=== PATIENT | male | born 2000 | race Caucasian/White ===

== ENCOUNTER → 2020-08-15 15:17 | Outpatient (CLI) | payer MEDICARE, SELFPAY ==
[2020-08-15 14:57] VITALS: BMI 38.0
[2020-08-15 16:34] LABS: Absolute Lymphocyte Count 1.76 X10^3/uL (0.83-4.51); Absolute Neutrophil Count 2.6 X10^3/uL (2.0-7.7); Basophil# 0.01 X10^3/uL; Basophil% 0.2 % (0-1); Hematocrit 43.9 % (40-54); Hemoglobin 14.1 g/dL (13.0-16.5); Lymphocyte # 1.76 X10^3/ul (4.0); Mean Corp Hgb Conc 32.1 g/dL (32-36); Mean Corpuscular Hgb 26.2 pg (27.0-32.0); Mean Corpuscular Volume 81.4 fL (80-94); Mean Platelet Vol. 9.9 fl (6.2-12.0); Monocyte# 0.41 X10^3/uL; Monocyte% 8.4 % (0-10); NRBC Flagged by Analyzer 0 % (0-5); Neutrophil % 53.2 % (47-70); Platelet Count 214 K/mm3 (150-450); RBC Distribution Width CV 13.6 % (11.6-14.6); RBC Distribution Width SD 40.6 fl (35.1-43.9); Red Blood Count 5.39 M/mm3 (4.6-6.2); White Blood Count 4.9 K/mm3 (4.4-11.0)
[2020-08-15 16:56] LABS: ALB/GLOB Ratio 0.8 RATIO (0.9-2.4); AST(SGOT) 55 U/L (15-37); Alanine Aminotransfer ALT/SGPT 85 U/L (16-61); Albumin, Serum 3.4 g/dL (3.2-5.0); Alkaline Phosphatase 99 U/L (45-117); Anion Gap 5 (5-15); BUN 6 mg/dL (7-18); BUN/Creat Ratio 7.5 RATIO (10-20); Calcium,Total 8.8 mg/dL (8.5-10.1); Chloride 106 mmol/L (98-107); Cholesterol 130 mg/dL (200); EST Glomerular Filtration Rate 129 mL/min (>60); Est Glom Filt Rate - Afr Amer 156 mL/min (>60); Globulin 4.3 g/dL (2.2-4.2); Glucose 100 mg/dL (74-106); High Density Lipoprotein 39 mg/dL; Protein, Total 7.7 g/dL (6.4-8.2); Sodium Level 139 mmol/L (136-145); Thyroid Stim Hormone (TSH) 2.47 uIU/mL (0.358-3.74); Triglycerides 197 mg/dL; Very Low Density Lipoprotein 39 mg/dL (5-40)
== END ==
PROVIDERS: PCP Internal Medicine; Referring Provider Internal Medicine; Visit Provider Internal Medicine
DX: K21.9 Gastro-esophageal reflux disease without esophagitis (principal); E66.9 Obesity, unspecified; E03.9 Hypothyroidism, unspecified
CPT/HCPCS: 36415; 80053; 80061; 84443; 85025

== ENCOUNTER → 2020-10-01 11:16 | Outpatient (CLI) | payer MEDICARE, SELFPAY ==
[2020-08-15 14:57] VITALS: BMI 38.0
[2020-10-01 11:58] LABS: Platelet Count 197 K/mm3 (150-450)
[2020-10-01 12:02] LABS: Valproic Acid (Depakene) Level 38 ug/mL (50-100)
[2020-10-01 12:06] LABS: Hemoglobin A1c 5.8 % (3.8-5.6)
[2020-10-01 13:38] LABS: AST(SGOT) 54 U/L (15-37); Alanine Aminotransfer ALT/SGPT 86 U/L (16-61); Cholesterol 131 mg/dL (200); High Density Lipoprotein 38 mg/dL; Prolactin 90.6 ng/mL; Triglycerides 216 mg/dL; Very Low Density Lipoprotein 43 mg/dL (5-40)
== END ==
PROVIDERS: PCP Internal Medicine; Referring Provider Psychiatry & Neurology Psychiatry; Visit Provider Psychiatry & Neurology Psychiatry
DX: Z79.899 Other long term (current) drug therapy (principal)
CPT/HCPCS: 36415; 80061; 80164; 82140; 83036; 84146; 84450; 84460; 85049

== ENCOUNTER 2020-12-14 23:23 | Emergency (ER) | payer MEDICARE, SELFPAY ==
--- NOTE | 2020-12-14 00:10 | RAD_ITS ---
STUDY: X-RAY - LUMBAR SPINE REASON FOR EXAM: Male, 20 years old. fall TECHNIQUE: 3 view(s) of the lumbar spine were obtained. COMPARISON: None FINDINGS: Normal lumbar lordosis. There is no substantial scoliosis. There is a normal alignment of the vertebrae. Normal vertebral bodies and endplates. Normal disc space heights. The soft tissue structures are unremarkable. RAD/Lumbar Spine 2 or 3 Views IMPRESSION: Normal x-ray examination of the lumbar spine. Electronically Signed: Rosa Brantley MD at 0:46 EDT Tel , Service support ,
[2020-12-14 23:24] VITALS: BP 144/84; PULSE 87; RESP 16; TEMP 36; O2SAT 99; BMI 38.9
--- NOTE | 2020-12-14 23:45 | EDS_ITS ---
HPI History of Present Illness Chief Complaint: Back Narrative Narrative: 20-year-old male presenting with left sided back pain and left leg pain. He states this started earlier today. He states that he has had diarrhea and felt that he might be dehydrated. He states he feels like this caused him to fall. He denies hitting his head. He complains of a cramping in his left calf. He also complains of sore throat. He has had the Covid vaccine. Denies fever. Denies cough. Denies abdominal pain. Denies nausea or vomiting. Denies other complaints. [facility] [place] Medical History Anxiety Autism Depression Home Medications cyclobenzaprine 10 mg PO TID PRN #20 tablet 12/15/20 [Rx Last Taken Unknown] Allergy/AdvReac Type Severity Reaction Status Date / Time No Known Allergies Allergy Verified 12/14/20 23:52 Social History Smoking Status: Current some day smoker tobacco type: e-cigarettes ROS ROS ED Constitutional Constitutional ED: Denies fever(s) Eyes Eyes: Denies change in vision ENT ENT ED: Reports rhinorrhea and sore throat Cardiovascular Cardiovascular: Denies chest pain or palpitations Respiratory/Chest Respiratory/Chest: Denies cough or dyspnea Gastrointestinal Gastrointestinal: Reports diarrhea; Denies abdominal pain, nausea or vomiting Genitourinary Genitourinary ED: Denies dysuria Musculoskeletal Musculoskeletal: Reports back pain Integumentary Denies rash Neurologic Neurologic: Denies headache(s) Psychiatric Psychiatric: Denies suicidal thoughts EXAM Physical Exam Const Vital Signs: 12/14/20 23:24 Temperature 96.8 F L Temperature Source Temporal Pulse Rate 87 Respiratory Rate 16 Blood Pressure 144/84 H Blood Pressure Mean 104 Pulse Ox 99 Oxygen Delivery Method Room Air Positive well nourished and well developed General Appearance ED: well developed HEENT Reports normocephalic, head/scalp atraumatic and moist mucous membranes HEENT Narrative: no pharyngeal erythema or exudate. Uvula midline Eyes PERRL and EOMs intact bilaterally Neck supple Neck Narrative: No meningismus General: Negative for tenderness Chest Wall inspection of chest normal Resp normal respiratory effort and clear to auscultation bilaterally Cardio regular rate and regular rhythm GI non-tender and non-distended Palpation: soft; Negative for guarding or rebound tenderness present no CVA tenderness Back/Spine General Back: other mild left lumbar paraspinal muscle tenderness Lumbar Spine / Lower Back: Negative for lumbar spinal tenderness Extremity normal to inspection Extremity Narrative: left calf tenderness. Normal distal pulses Neuro oriented x3 and no sensory deficits noted Sensorium / Orientation: alert Motor Exam: strength 5/5 throughout Psych mental status grossly normal Skin no rashes or lesions noted MDM MDM MDM Narrative Medical decision making narrative: Patient was given IV fluids. On ree valuation, he is feeling improved. Labs are unremarkable. Covid and rapid strep are negative. Lumbar x-rays read by myself and radiology show no acute process. Patient was given order for outpatient venous Doppler as this is not available at this time. Advised to return to ED for worsening complaints. Lab Data Attestation: I reviewed the patient's lab results. Labs: Laboratory Results - last 24 hr 12/14/20 12/14/20 12/15/20 23:50 23:50 00:41 WBC 6.1 RBC 5.14 Hgb 13.3 Hct 41.2 MCV 80.2 MCH 25.9 L MCHC 32.3 RDW Std Deviation 40.1 RDW Coeff of [place] 13.8 Plt Count 205 MPV 9.5 Immature Gran % (Auto) 0.300 Neut % (Auto) 55.5 Lymph % (Auto) 32.4 [place] % (Auto) 8.7 Eos % (Auto) 2.8 Baso % (Auto) 0.3 Absolute Neuts (auto) 3.4 Absolute Lymphs (auto) 1.97 Nucleated RBC % 0 Sodium 138 Potassium 3.9 Chloride 105 Carbon Dioxide 27.0 Anion Gap 6 BUN 7 Creatinine 0.77 Estim Creat Clear Calc 166.57 Est GFR (MDRD) Af Amer 164 Est GFR (MDRD) Non-Af 135 BUN/Creatinine Ratio 9.1 L Glucose 127 H Calcium 8.9 Urine Color Yellow Urine Clarity Clear Urine pH 7.0 Ur Specific [place] 1.015 Urine Protein Negative Urine Glucose (UA) Normal Urine Ketones Negative Urine Occult Blood Negative Urine Nitrite Negative Urine Bilirubin Negative Urine Urobilinogen Normal Ur Leukocyte Esterase Negative Urine RBC 0 SEEN Urine WBC 0 SEEN Ur Squamous Epith Cells 0 SEEN Urine Bacteria 0 SEEN Urine Mucus 0 SEEN Radiography Diagnostic Testing: Radiology Impression Lumbar Spine X-Ray 12/14/20 00:10 IMPRESSION: Normal x-ray examination of the lumbar spine. Electronically Signed: Rosa Brantley MD at 0:46 EDT Tel , Service support , Discharge Plan Triage Chief Complaint: Back ED Provider: Karlee Wise Dx/Rx/DC Orders Clinical Impression: Lumbar strain Prescriptions: New cyclobenzaprine [cyclobenzaprine] 10 MG tablet 10 mg PO TID PRN (Reason: Muscle Spasm) Qty: 20 RF: 0 Primary Care Provider: Baylee Goddard Referrals: Baylee Goddard MD [Primary Care Provider] - Disposition Disposition: Home, self care
[2020-12-14 23:57] LABS: Absolute Lymphocyte Count 1.97 X10^3/uL (0.83-4.51); Absolute Neutrophil Count 3.4 X10^3/uL (2.0-7.7); Basophil# 0.02 X10^3/uL; Basophil% 0.3 % (0-1); Eosinophil# 0.17 X10^3/uL; Eosinophils% 2.8 % (0-5); Hematocrit 41.2 % (40-54); Hemoglobin 13.3 g/dL (13.0-16.5); Lymphocyte # 1.97 X10^3/ul (0.83-4.51); Lymphocyte % 32.4 % (19-41); Mean Corp Hgb Conc 32.3 g/dL (32-36); Mean Corpuscular Hgb 25.9 pg (27.0-32.0); Mean Corpuscular Volume 80.2 fL (80-94); Mean Platelet Vol. 9.5 fl (6.2-12.0); Monocyte# 0.53 X10^3/uL; Monocyte% 8.7 % (0-10); NRBC Flagged by Analyzer 0 % (0-5); Neutrophil # 3.37 X10^3/uL (2.7-7.7); Neutrophil % 55.5 % (47-70); Platelet Count 205 K/mm3 (150-450); RBC Distribution Width CV 13.8 % (11.6-14.6); RBC Distribution Width SD 40.1 fl (35.1-43.9); Red Blood Count 5.14 M/mm3 (4.6-6.2); White Blood Count 6.1 K/mm3 (4.4-11.0)
[2020-12-14] MEDS: Ondansetron 4 MG/2 ML Vial IV (23:58)
[2020-12-14] MEDS: 0.9% Normal Saline 1,000 ML 1000 ML IV (23:58)
[2020-12-15 00:17] LABS: Anion Gap 6 (5-15); BUN 7 mg/dL (7-18); BUN/Creat Ratio 9.1 RATIO (10-20); Calcium,Total 8.9 mg/dL (8.5-10.1); Chloride 105 mmol/L (98-107); Creatinine, Serum 0.77 mg/dL (0.70-1.30); EST Glomerular Filtration Rate 135 mL/min (>60); Est Glom Filt Rate - Afr Amer 164 mL/min (>60); Estimated Creatinine Clearance 166.57 ml/min; Glucose 127 mg/dL (74-106); Potassium 3.9 mmol/L (3.5-5.1); Sodium Level 138 mmol/L (136-145)
[2020-12-15 00:45] LABS: Bacteria 0 SEEN /hpf (None Seen); Mucous, Urine 0 SEEN /hpf (<or=2+); Red Blood Cells-Urine 0 SEEN /hpf (0-5); Squamous Epithelial Cells - UA 0 SEEN /hpf (0-5); White Blood Cells 0 SEEN /hpf (0-5)
[2020-12-15 00:48] LABS: Color, Urine Yellow (Yellow); Glucose, Dipstick Normal (Normal); Ketone-Dipstick Negative (Negative); Leukocyte Esterase-Dipstick Negative /ul (Negative); Nitrite-Dipstick Negative (Negative); Occult Blood-Urine Negative /ul (Negative); Protein-Dipstick Negative (Negative); Specific Gravity, Urine 1.015 (1.002-1.030); Urine Bilirubin Dipstick Negative (Negative); Urine Clarity Clear (Clear); Urine Urobilinogen Normal (Normal)
[2020-12-15 01:39] VITALS: BP 137/72; PULSE 81; RESP 15; O2SAT 98
--- NOTE | 2020-12-15 02:17 | ED.RN ---
Unable to find pts shirt at discharge. This RN asked three RNs, PRIMER PRESS OPERATOR and Radiology if they knew where his shirt was, no one knew. I checked all around room and underneath the bed. The linen bag was emptied prior to PTs arrival and continues to be emptied. PT blanket and gown were checked, still no shirt. oenologist involved. This RN verified pts phone number and sent pt home. I told PT we would continue to look for the shirt. Phone number verified. PT was happy to go home to sleep.
== END 2020-12-15 02:48 | disposition home or self-care (01) ==
PROVIDERS: Emergency Provider Emergency Medicine; PCP Internal Medicine
DX: S39.012A Strain of muscle, fascia and tendon of lower back, initial encounter (principal); J02.9 Acute pharyngitis, unspecified; F41.9 Anxiety disorder, unspecified; F32.9 Major depressive disorder, single episode, unspecified; F17.290 Nicotine dependence, other tobacco product, uncomplicated; Z79.899 Other long term (current) drug therapy; W18.30XA Fall on same level, unspecified, initial encounter; Y93.89 Activity, other specified; Y92.89 Other specified places as the place of occurrence of the external cause; Y99.8 Other external cause status
CPT/HCPCS: 72100; 80048; 81001; 85025; 87426; 87880; 96361; 96374; 99283; J7030; A4216; J2405

== ENCOUNTER → 2020-12-20 13:13 | Outpatient (CLI) | payer MEDICARE, SELFPAY ==
[2020-12-14 23:24] VITALS: BMI 38.9
--- NOTE | 2020-12-20 13:25 | VDLE_ITS ---
Reason For Study: Pain Procedure LEFT This is a venous duplex using B-mode, color GSV is normal. flow and spectral Doppler. CFV is compressible, spontaneous, phasic, Exam performed in department. competent, and demonstrates normal A preliminary report was called and/or faxed augmentation. to PCP: Rupesh. FV is compressible, spontaneous, phasic, competent and demonstrates normal augmentation. POP V is compressible, spontaneous, phasic, competent and demonstrates normal augmentation. T/P Trunk is compressible. PTV is compressible. LT PerV is compressible. VL/Venous Duplex US, Unilateral Interpretation Summary There is no evidence of left lower extremity deep vein thrombosis. Left great s aphenous vein appears patent and compressible segmentally. Ordering Physician: Karlee Wise Referring Physician: Baylee Goddard Performed By: Jessica Vogt RVT and Student
== END ==
PROVIDERS: PCP Internal Medicine; Visit Provider Emergency Medicine
DX: M79.605 Pain in left leg (principal)
CPT/HCPCS: 93971

== ENCOUNTER 2021-01-17 07:08 | Emergency (ER) | payer MEDICARE, SELFPAY ==
[2021-01-17 07:09] VITALS: BP 132/80; PULSE 92; RESP 18; TEMP 36.7; O2SAT 97; BMI 39.1
[2021-01-17 07:12] VITALS: O2SAT 97
--- NOTE | 2021-01-17 07:19 | EKG12_ITS ---
Test Reason : SOB Blood Pressure : / mmHG Vent. Rate : 095 BPM Atrial Rate : 095 BPM P-R Int : 140 ms QRS Dur : 080 ms QT Int : 350 ms P-R-T Axes : 006 024 012 degrees QTc Int : 439 ms Normal sinus rhythm Possible Inferior infarct , age undetermined Abnormal ECG Confirmed by HASMUKH URBAN, CATA ([id number]), industrial editor PHUONG ALVAREZ ([id number]) on 01/20/2021 9:50:28 AM Referred By: JOSEPH Confirmed By:ANTONELLA NOE MD
--- NOTE | 2021-01-17 07:19 | RAD_ITS ---
STUDY: X-RAY CHEST REASON FOR EXAM: Male, 20 years old. chest pain TECHNIQUE: Single frontal view of the chest was obtained. COMPARISON: None. FINDINGS: The lungs are clear and expanded. There is no demonstrated pleural abnormality. Normal size heart. Normal mediastinum and humphrey. Normal visualized pulmonary arteries. Normal visualized aortic arch and descending thoracic aorta. Normal visualized thoracic spine. Normal visualized ribs, clavicles, and shoulders. There is no demonstrated abnormality of the visualized soft tissue structures of the upper abdomen. RAD/Chest 1 View (Portable) IMPRESSION: Normal x-ray examination of the chest. Electronically Signed: Otis Shaver MD at 8:23 EDT Tel , Service support ,
--- NOTE | 2021-01-17 07:19 | EDS_ITS ---
HPI History of Present Illness Chief Complaint: Shortness of Breath Narrative Narrative: 20-year-old male with history of autism, anxiety, depression presenting with intermittent sharp chest pain which is retrosternal for about 3 weeks. and nonradiating Patient has not had a fever, chills, myalgias, loss of taste or smell patient said he was coughing yesterday after drinking 2 L of soda. Patient does not have any dyspnea. Patient has no cardiac history. No history of DVT/PE and no risk factors. [facility] Medical History Anxiety Autism Depression GERD (gastroesophageal reflux disease) Hypothyroidism Schizoaffective disorder Seizures Home Medications benztropine 2 mg tablet 2 mg PO DAILY 08/15/20 [History Last Taken Unknown] divalproex 250 mg tablet,delayed release 250 mg PO QHS tab 08/15/20 [History Last Taken Unknown] divalproex 500 mg tablet,delayed release 500 mg PO BID 08/15/20 [History Last Taken Unknown] doxepin 75 mg capsule 75 mg PO QHS 08/15/20 [History Last Taken Unknown] hydrocortisone 2.5 % topical ointment 1 applic TOPICAL BID PRN #454 g 08/15/20 [Rx Last Taken Unknown] levocetirizine 5 mg tablet 5 mg PO QPM #90 tab 08/15/20 [Rx Last Taken Unknown] paliperidone 9 mg tablet,extended release 24 hr 9 mg PO DAILY 08/15/20 [History Last Taken Unknown] sertraline 100 mg tablet 100 mg PO DAILY 08/15/20 [History Last Taken Unknown] topiramate 25 mg tablet 25 mg PO DAILY 08/15/20 [History Last Taken Unknown] ergocalciferol (vitamin D2) 1,250 mcg (50,000 unit) capsule 1,250 mcg PO QWEEK #10 cap 09/04/20 [Rx Last Taken Unknown] folic acid 1 mg tablet 1 mg PO DAILY #90 tab 09/04/20 [Rx Last Taken Unknown] cyclobenzaprine 10 mg PO TID PRN #20 tablet 12/15/20 [Rx Last Taken Unknown] levothyroxine 25 mcg capsule 25 mcg PO DAILY #90 cap 01/16/21 [Rx Last Taken Unknown] omeprazole 40 mg capsule,delayed release 40 mg PO DAILY #90 cap 01/16/21 [Rx Last Taken Unknown] Allergy/AdvReac Type Severity Reaction Status Date / Time No Known Allergies Allergy Unverified 01/17/21 07:09 Family History Mother Diabetes Other Hypertension Social History Smoking Status: Former smoker alcohol intake: never substance use type: does not use ROS ROS ED Constitutional Constitutional ED: Denies chills, fever(s) or sweats Eyes Eyes: Denies blurry vision or diplopia ENT ENT ED: Denies rhinorrhea or sore throat Cardiovascular Cardiovascular: Reports chest pain; Denies palpitations or racing heartbeat Respiratory/Chest Respiratory/Chest: Reports cough; Denies dyspnea, dyspnea on exertion or sputum Gastrointestinal Gastrointestinal: Denies abdominal pain, nausea or vomiting Genitourinary Genitourinary ED: Denies dysuria or hematuria Musculoskeletal Musculoskeletal: Denies arthralgias or myalgias Integumentary Denies abscess or rash Neurologic Neurologic: Denies headache(s) or paresthesias Psychiatric Psychiatric: Reports depression; Denies anxiety, suicidal ideation or suicidal thoughts EXAM Physical Exam Const Vital Signs: 01/17/21 07:09 01/17/21 07:12 01/17/21 07:23 Temperature 98.0 F Temperature Source Oral Pulse Rate 92 Respiratory Rate 18 Respiratory Effort Normal Non-Labored Respiratory Depth Normal Respiratory Pattern Normal Blood Pressure 132/80 H Blood Pressure Mean 97 Pulse Ox 97 98 Oxygen Delivery Method Room Air Room Air Room Air 01/17/21 08:16 Temperature Temperature Source Pulse Rate 75 Respiratory Rate 16 Respiratory Effort Respiratory Depth Respiratory Pattern Blood Pressure 119/65 Blood Pressure Mean 83 Pulse Ox 98 Oxygen Delivery Method Room Air Positive obese General Appearance ED: NAD Nutritional Appearance: obese HEENT Reports moist mucous membranes normocephalic and atraumatic Eyes PERRL and EOMs intact bilaterally Resp normal respiratory effort Effort and Inspection: respiratory distress Cardio regular rate and regular rhythm GI normal to inspection, nondistended, normoactive bowel sounds Extremity normal to inspection General Extremety ED: Negative for edema or tenderness General Extremity: Negative for edema Neuro oriented x3 Sensorium / Orientation: awake and alert Psych mental status grossly normal Skin no rashes or lesions noted and no wounds Heart Score History: Slightly/Non-Suspicious ECG: Normal Age: </= 45 years Risk Factors: No Risk Factors Troponin: </= Normal Limit Score: 0 MDM MDM MDM Narrative Medical decision making narrative: Patient presenting with intermittent sharp chest pain. This has been going on for about 3 weeks. Patient is PERC negative. Patient had EKG performed on arrival which shows a sinus rhythm at 95 bpm without signs of ST elevation or depression or dysrhythmia on my interpretation. Lab work is within normal limits. Troponin is negative. Patient is young and has no cardiac history and I do not believe he needs a delta troponin. Chest x-ray on my interpretation shows no acute cardiopulmonary process and the radiologist does agree. Patient will be discharged home in stable condition. Impression: Mitch #1 chest pain Lab Data Labs: Laboratory Results - last 24 hr 01/17/21 01/17/21 01/17/21 07:17 07:17 07:17 WBC 6.0 RBC 5.32 Hgb 13.5 Hct 42.5 MCV 79.9 L MCH 25.4 L MCHC 31.8 L RDW Std Deviation 40.2 RDW Coeff of [place] 13.9 Plt Count 200 MPV 9.4 Immature Gran % (Auto) 0.500 Neut % (Auto) 55.4 Lymph % (Auto) 32.2 [place] % (Auto) 9.4 Eos % (Auto) 2.0 Baso % (Auto) 0.5 Absolute Neuts (auto) 3.3 Absolute Lymphs (auto) 1.92 Nucleated RBC % 0 Sodium 138 Potassium 3.5 Chloride 103 Carbon Dioxide 26.0 Anion Gap 9 BUN 5 L Creatinine 0.90 Estim Creat Clear Calc 142.51 Est GFR (MDRD) Af Amer 137 Est GFR (MDRD) Non-Af 113 BUN/Creatinine Ratio 5.6 L Glucose 116 H Calcium 8.7 Troponin I High Sens 3.7 Valproic Acid 60 Radiography Diagnostic Testing: Radiology Impression Chest X-Ray 01/17/21 07:19 IMPRESSION: Normal x-ray examination of the chest. Electronically Signed: Otis Shaver MD at 8:23 EDT Tel , Service support , Discharge Plan Triage Chief Complaint: Shortness of Breath ED Provider: Ravi Martinez Dx/Rx/DC Orders Instructions: ED Chest Pain, Noncardiac Prescriptions: No Action benztropine 2 mg tablet 2 mg PO DAILY RF: 0 divalproex [Depakote] 250 mg tablet,delayed release (DR/EC) 250 mg PO QHS RF: 0 divalproex [Depakote] 500 mg tablet,delayed release (DR/EC) 500 mg PO BID RF: 0 doxepin 75 mg capsule 75 mg PO QHS RF: 0 paliperidone [Invega] 9 mg tablet extended release 24hr 9 mg PO DAILY RF: 0 sertraline [Zoloft] 100 mg tablet 100 mg PO DAILY RF: 0 topiramate 25 mg tablet 25 mg PO DAILY RF: 0 hydrocortisone 2.5 % ointment 1 applic TOPICAL BID PRN (Reason: rash) Qty: 454 RF: 3 levocetirizine [Xyzal] 5 mg tablet 5 mg PO QPM Qty: 90 RF: 2 cyclobenzaprine [cyclobenzaprine] 10 MG tablet 10 mg PO TID PRN (Reason: Muscle Spasm) Qty: 20 RF: 0 ergocalciferol (vitamin D2) 1,250 mcg (50,000 unit) capsule 1,250 mcg PO QWEEK Qty: 10 RF: 2 folic acid 1 mg tablet 1 mg PO DAILY Qty: 90 RF: 0 levothyroxine 25 mcg capsule 25 mcg PO DAILY Qty: 90 RF: 1 omeprazole 40 mg capsule,delayed release(DR/EC) 40 mg PO DAILY Qty: 90 RF: 1 Primary Care Provider: Baylee Goddard Referrals: Baylee Goddard MD [Primary Care Provider] - Disposition Disposition: Home, Self Care
[2021-01-17 07:23] VITALS: O2SAT 98
[2021-01-17] MEDS: Aspirin 81 MG TAB.CHEW 324 MG PO (07:27)
[2021-01-17 07:37] LABS: Absolute Lymphocyte Count 1.92 X10^3/uL (0.83-4.51); Absolute Neutrophil Count 3.3 X10^3/uL (2.0-7.7); Basophil# 0.03 X10^3/uL; Basophil% 0.5 % (0-1); Eosinophil# 0.12 X10^3/uL; Hematocrit 42.5 % (40-54); Hemoglobin 13.5 g/dL (13.0-16.5); Lymphocyte # 1.92 X10^3/ul (0.83-4.51); Lymphocyte % 32.2 % (19-41); Mean Corp Hgb Conc 31.8 g/dL (32-36); Mean Corpuscular Hgb 25.4 pg (27.0-32.0); Mean Corpuscular Volume 79.9 fL (80-94); Mean Platelet Vol. 9.4 fl (6.2-12.0); Monocyte# 0.56 X10^3/uL; Monocyte% 9.4 % (0-10); NRBC Flagged by Analyzer 0 % (0-5); Neutrophil # 3.31 X10^3/uL (2.7-7.7); Neutrophil % 55.4 % (47-70); Platelet Count 200 K/mm3 (150-450); RBC Distribution Width CV 13.9 % (11.6-14.6); RBC Distribution Width SD 40.2 fl (35.1-43.9); Red Blood Count 5.32 M/mm3 (4.6-6.2)
[2021-01-17 07:49] LABS: Anion Gap 9 (5-15); BUN 5 mg/dL (7-18); BUN/Creat Ratio 5.6 RATIO (10-20); Calcium,Total 8.7 mg/dL (8.5-10.1); Chloride 103 mmol/L (98-107); EST Glomerular Filtration Rate 113 mL/min (>60); Est Glom Filt Rate - Afr Amer 137 mL/min (>60); Estimated Creatinine Clearance 142.51 ml/min; Glucose 116 mg/dL (74-106); Potassium 3.5 mmol/L (3.5-5.1); Sodium Level 138 mmol/L (136-145); Troponin-I HS 3.7 pg/mL (3.0-78.5)
[2021-01-17 08:11] LABS: Valproic Acid (Depakene) Level 60 ug/mL (50-100)
[2021-01-17 08:16] VITALS: BP 119/65; PULSE 75; RESP 16; O2SAT 98
[2021-01-17 08:35] VITALS: BP 121/68; PULSE 78; RESP 16; O2SAT 98
== END 2021-01-17 08:36 | disposition home or self-care (01) ==
PROVIDERS: Emergency Provider Student in an Organized Health Care Education/Training Program; PCP Internal Medicine
DX: R07.89 Other chest pain (principal); F41.9 Anxiety disorder, unspecified; F32.9 Major depressive disorder, single episode, unspecified; K21.9 Gastro-esophageal reflux disease without esophagitis; E03.9 Hypothyroidism, unspecified; F25.9 Schizoaffective disorder, unspecified; E66.9 Obesity, unspecified; Z79.899 Other long term (current) drug therapy; Z87.891 Personal history of nicotine dependence
CPT/HCPCS: 71045; 80048; 80164; 84484; 85025; 93005; 99285; A4216

== ENCOUNTER 2021-02-03 13:19 | Emergency (ER) | payer MEDICARE, SELFPAY ==
[2021-02-03 13:20] VITALS: BP 130/74; PULSE 98; RESP 16; TEMP 37; O2SAT 98; BMI 38.2
[2021-02-03 13:30] VITALS: O2SAT 98
--- NOTE | 2021-02-03 13:55 | EKG12_ITS ---
Test Reason : SOB Blood Pressure : / mmHG Vent. Rate : 085 BPM Atrial Rate : 085 BPM P-R Int : 140 ms QRS Dur : 088 ms QT Int : 364 ms P-R-T Axes : -02 027 030 degrees QTc Int : 433 ms Normal sinus rhythm Normal ECG Confirmed by DHEERAJ URBAN, MICHELLE ([id number]), greeting card editor PHUONG ALVAREZ ([id number]) on 02/06/2021 12:46:00 PM Referred By: DT Confirmed By:MICHELLE ESQUEDA MD
[2021-02-03] MEDS: Ipratropium/Albuterol Sulfate 3 ML AMPUL.NEB INHALATION (14:06)
[2021-02-03 14:08] VITALS: PULSE 87; RESP 22; O2SAT 96
--- NOTE | 2021-02-03 14:10 | RAD_ITS ---
EXAM DESCRIPTION: PA and lateral CHEST CLINICAL HISTORY: 20 years Male, cough cough COMPARISON: AP portable chest obtained on 01/17/2021 FINDINGS: The thorax is intact. The heart and mediastinum appear to be within normal limits. The lungs appear to be well areated without evidence of pneumonic consolidation or pleural effusion. RAD/Chest PA and Lateral IMPRESSION: Normal PA and lateral chest Electronically Signed: Josr Cano DO at 14:29 EDT Tel , Service support ,
--- NOTE | 2021-02-03 15:53 | EDS_ITS ---
HPI History of Present Illness Chief Complaint: Shortness of Breath Informant: patient and parent Narrative Narrative: Patient presents with some cough and dyspnea. Evidently there is another person's house with similar symptoms. 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 They had an elevated carbon monoxide level. This patient had an episode of nausea and vomiting at work but he is not nauseated now. He has had mild sore throat. He has had a nonproductive cough. No known exposure to Covid. No chest pain. Nothing really makes his symptoms better or worse. [facility] Medical History Anxiety Autism Depression GERD (gastroesophageal reflux disease) Hypothyroidism Schizoaffective disorder Seizures Home Medications benztropine 2 mg tablet 2 mg PO DAILY 08/15/20 [History Last Taken Unknown] divalproex 250 mg tablet,delayed release 250 mg PO QHS tab 08/15/20 [History L ast Taken Unknown] divalproex 500 mg tablet,delayed release 500 mg PO BID 08/15/20 [History Last Taken Unknown] doxepin 75 mg capsule 75 mg PO QHS 08/15/20 [History Last Taken Unknown] hydrocortisone 2.5 % topical ointment 1 applic TOPICAL BID PRN #454 g 08/15/20 [Rx Last Taken Unknown] levocetirizine 5 mg tablet 5 mg PO QPM #90 tab 08/15/20 [Rx Last Taken Unknown] paliperidone 9 mg tablet,extended release 24 hr 9 mg PO DAILY 08/15/20 [History Last Taken Unknown] sertraline 100 mg tablet 100 mg PO DAILY 08/15/20 [History Last Taken Unknown] topiramate 25 mg tablet 25 mg PO DAILY 08/15/20 [History Last Taken Unknown] ergocalciferol (vitamin D2) 1,250 mcg (50,000 unit) capsule 1,250 mcg PO QWEEK #10 cap 09/04/20 [Rx Last Taken Unknown] folic acid 1 mg tablet 1 mg PO DAILY #90 tab 09/04/20 [Rx Last Taken Unknown] cyclobenzaprine 10 mg PO TID PRN #20 tablet 12/15/20 [Rx Last Taken Unknown] levothyroxine 25 mcg capsule 25 mcg PO DAILY #90 cap 01/16/21 [Rx Last Taken Unknown] omeprazole 40 mg capsule,delayed release 40 mg PO DAILY #90 cap 01/16/21 [Rx Last Taken Unknown] albuterol sulfate [Ventolin HFA] 2 puff INHALATION Q4H PRN PRN #1 inh 02/03/21 [Rx Last Taken Unknown] Allergy/AdvReac Type Severity Reaction Status Date / Time No Known Allergies Allergy Verified 02/03/21 13:23 Family History Mother Diabetes Other Hypertension Social History Smoking Status: Former smoker alcohol intake: never substance use type: does not use ROS ROS ED Constitutional Constitutional ED: Denies fever(s) Eyes Eyes: Denies change in vision ENT ENT ED: Reports rhinorrhea and sore throat; Denies ear pain Cardiovascular Cardiovascular: Denies chest pain Respiratory/Chest Respiratory/Chest: Reports cough and dyspnea; Denies sputum Gastrointestinal Gastrointestinal: Reports nausea and vomiting; Denies abdominal pain or diarrhea Genitourinary Genitourinary ED: Denies dysuria Musculoskeletal Musculoskeletal: Reports myalgias; Denies arthralgias Integumentary Denies rash Neurologic Neurologic: Denies headache(s) Endocrine Endocrinology: Denies polyuria Allergic/Immunologic Allergic/Immunologic ED: Denies urticaria EXAM Physical Exam Const Vital Signs: 02/03/21 13:20 02/03/21 13:30 02/03/21 13:31 Temperature 98.6 F Temperature Source Temporal Pulse Rate 98 Respiratory Rate 16 Respiratory Effort Normal Non-Labored Respiratory Depth Normal Respiratory Pattern Normal Blood Pressure 130/74 H Blood Pressure Mean 92 Pulse Ox 98 98 Oxygen Delivery Method Room Air Room Air 02/03/21 14:08 Temperature Temperature Source Pulse Rate 87 Respiratory Rate 22 H Respiratory Effort Respiratory Depth Respiratory Pattern Normal Blood Pressure Blood Pressure Mean Pulse Ox 96 Oxygen Delivery Method Room Air Positive well nourished and well developed General Appearance ED: well developed HEENT Reports TM's clear and moist mucous membranes atraumatic; Negative for trauma or tenderness Tympanic Membrane ED: Yes TM's clear Eyes General Eye ED: Negative for pale conjunctiva Neck supple Resp normal respiratory effort Resp Narrative: Patient has a mild end expiratory wheeze. No rhonchi or rales. Auscultation: wheezes Cardio regular rhythm GI non-tender Palpation: soft Back/Spine no CVA tenderness Neuro oriented x3 Sensorium / Orientation: alert Skin Rashes: no rashes MDM MDM MDM Narrative Medical decision making narrative: Covid is negative. Chest x-ray shows no acute process. Patient states he feels completely resolved after the DuoNeb. I will write him for albuterol. We will get him home. I do not think he needs antibiotics or steroids. We discussed reasons to return. Radiography Diagnostic Testing: Radiology Impression Chest X-Ray 02/03/21 14:10 IMPRESSION: Normal PA and lateral chest Electronically Signed: Josr Cano DO at 14:29 EDT Tel , Service support , EKG Initial EKG: Comments: EKG done for dyspnea read by me shows normal sinus rhythm with a rate of 85. No acute ST elevation or depression. Nonspecific ST change. NM interval, QRS duration and QTc normal. Discharge Plan Triage Chief Complaint: Shortness of Breath ED Provider: Baljeet Boucher Dx/Rx/DC Orders Clinical Impression: URI, acute, Acute bronchospasm Instructions: ED Bronchitis with Wheezing (Adult) Prescriptions: New albuterol sulfate [Ventolin HFA] 90 mcg/actuation HFA aerosol inhaler 2 puff inhalation Q4H PRN PRN (Reason: Wheezing) Qty: 1 RF: 0 No Action benztropine 2 mg tablet 2 mg PO DAILY RF: 0 divalproex [Depakote] 250 mg tablet,delayed release (DR/EC) 250 mg PO QHS RF: 0 divalproex [Depakote] 500 mg tablet,delayed release (DR/EC) 500 mg PO BID RF: 0 doxepin 75 mg capsule 75 mg PO QHS RF: 0 paliperidone [Invega] 9 mg tablet extended release 24hr 9 mg PO DAILY RF: 0 sertraline [Zoloft] 100 mg tablet 100 mg PO DAILY RF: 0 topiramate 25 mg tablet 25 mg PO DAILY RF: 0 hydrocortisone 2.5 % ointment 1 applic TOPICAL BID PRN (Reason: rash) Qty: 454 RF: 3 levocetirizine [Xyzal] 5 mg tablet 5 mg PO QPM Qty: 90 RF: 2 cyclobenzaprine [cyclobenzaprine] 10 MG tablet 10 mg PO TID PRN (Reason: Muscle Spasm) Qty: 20 RF: 0 ergocalciferol (vitamin D2) 1,250 mcg (50,000 unit) capsule 1,250 mcg PO QWEEK Qty: 10 RF: 2 folic acid 1 mg tablet 1 mg PO DAILY Qty: 90 RF: 0 levothyroxine 25 mcg capsule 25 mcg PO DAILY Qty: 90 RF: 1 omeprazole 40 mg capsule,delayed release(DR/EC) 40 mg PO DAILY Qty: 90 RF: 1 Primary Care Provider: Baylee Goddard Referrals: Baylee Goddard MD [Primary Care Provider] - 3-5 Days if not improving Disposition Disposition: Home, Self Care
[2021-02-03 16:11] VITALS: BP 130/60; PULSE 72; RESP 19; O2SAT 100
== END 2021-02-03 16:40 | disposition home or self-care (01) ==
PROVIDERS: Emergency Provider Emergency Medicine; PCP Internal Medicine
DX: J06.9 Acute upper respiratory infection, unspecified (principal); J98.01 Acute bronchospasm; F41.9 Anxiety disorder, unspecified; K21.9 Gastro-esophageal reflux disease without esophagitis; E03.9 Hypothyroidism, unspecified; R56.9 Unspecified convulsions; Z79.899 Other long term (current) drug therapy
CPT/HCPCS: 71046; 87426; 93005; 94640; 99282

== ENCOUNTER → 2021-04-14 15:44 | Outpatient (CLI) | payer MEDICARE, SELFPAY ==
[2021-04-14 16:07] LABS: Platelet Count 208 K/mm3 (150-450)
[2021-04-14 16:22] LABS: AST(SGOT) 36 U/L (15-37); Alanine Aminotransfer ALT/SGPT 69 U/L (16-61)
[2021-04-14 17:13] LABS: Valproic Acid (Depakene) Level 82 ug/mL (50-100)
== END ==
PROVIDERS: PCP Internal Medicine; Referring Provider Psychiatry & Neurology Psychiatry; Visit Provider Psychiatry & Neurology Psychiatry
DX: Z79.899 Other long term (current) drug therapy (principal)
CPT/HCPCS: 36415; 80164; 82140; 83036; 84450; 84460; 85049

== ENCOUNTER → 2021-12-09 | Outpatient (CLI) | payer MEDICARE, SELFPAY ==
[2021-12-09 16:34] LABS: Absolute Lymphocyte Count 1.75 X10^3/uL (0.83-4.51); Absolute Neutrophil Count 3.1 X10^3/uL (2.0-7.7); Basophil# 0.02 X10^3/uL; Basophil% 0.4 % (0-1); Eosinophil# 0.11 X10^3/uL; Eosinophils% 1.9 % (0-5); Hematocrit 37.8 % (40-54); Hemoglobin 12.5 g/dL (13.0-16.5); Lymphocyte # 1.75 X10^3/ul (0.83-4.51); Mean Corp Hgb Conc 33.1 g/dL (32-36); Mean Corpuscular Hgb 26.7 pg (27.0-32.0); Mean Corpuscular Volume 80.8 fL (80-94); Mean Platelet Vol. 9.1 fl (6.2-12.0); Monocyte# 0.67 X10^3/uL; Monocyte% 11.9 % (0-10); NRBC Flagged by Analyzer 0 % (0-5); Neutrophil # 3.06 X10^3/uL (2.7-7.7); Neutrophil % 54.1 % (47-70); Platelet Count 178 K/mm3 (150-450); RBC Distribution Width CV 15.1 % (11.6-14.6); RBC Distribution Width SD 44.7 fl (35.1-43.9); Red Blood Count 4.68 M/mm3 (4.6-6.2); White Blood Count 5.7 K/mm3 (4.4-11.0)
[2021-12-09 17:08] LABS: Hemoglobin A1c 6.4 % (3.8-5.6)
[2021-12-09 17:10] LABS: ALB/GLOB Ratio 0.8 RATIO (0.9-2.4); AST(SGOT) 57 U/L (15-37); Alanine Aminotransfer ALT/SGPT 56 U/L (16-61); Alkaline Phosphatase 140 U/L (45-117); Anion Gap 4 (5-15); BUN 6 mg/dL (7-18); BUN/Creat Ratio 7.7 RATIO (10-20); Calcium,Total 8.3 mg/dL (8.5-10.1); Chloride 105 mmol/L (98-107); Cholesterol 127 mg/dL (200); Creatinine, Serum 0.78 mg/dL (0.70-1.30); EST Glomerular Filtration Rate 132 mL/min (>60); Est Glom Filt Rate - Afr Amer 160 mL/min (>60); Glucose 121 mg/dL (74-106); High Density Lipoprotein 32 mg/dL; Potassium 4.2 mmol/L (3.5-5.1); Sodium Level 138 mmol/L (136-145); Thyroid Stim Hormone (TSH) 8.75 uIU/mL (0.358-3.74); Triglycerides 305 mg/dL; Very Low Density Lipoprotein 61 mg/dL (5-40)
== END | disposition home or self-care (01) ==
LOC: BIMLAB 14:42
PROVIDERS: PCP Internal Medicine; Referring Provider Internal Medicine; Visit Provider Internal Medicine
DX: E03.9 Hypothyroidism, unspecified (principal); E66.01 Morbid (severe) obesity due to excess calories; R73.03 Prediabetes
CPT/HCPCS: 36415; 80053; 80061; 83036; 84443; 85025

== ENCOUNTER 2022-04-25 13:17 | Emergency (ER) | payer MEDICARE, SELFPAY ==
[2022-04-25 13:18] VITALS: BP 133/90; PULSE 86; RESP 16; TEMP 35.7; O2SAT 97; BMI 38.7
--- NOTE | 2022-04-25 13:54 | EDS_ITS ---
HPI HPI - GI History of Present Illness Chief Complaint: Abd Pain Narrative Narrative: 21-year-old male presenting for evaluation of diarrhea, nausea and vomiting, abdominal pain and lower abdomen. Patient states he started with a headache on Wednesday. It progressed to a sore throat and crampy abdominal pain. He has been having episodes of vomiting but denies coffee-ground emesis or hematemesis. Patient is also had some dark brown stools. Patient states that he has not had any abdominal surgeries in the past. The pain is not associated with eating necessarily. He does not have any right upper quadrant or right lower quadrant pain specifically. He is not had a fever at home. He states he has been sweating a lot at night but this is a long-term issue and has been doing this since he moved [facility]. Patient has no history of diverticulitis. He has no sick contacts at home. [facility] Medical History Anxiety Autism Borderline type 2 diabetes mellitus Depression GERD (gastroesophageal reflux disease) Hypothyroidism Schizoaffective disorder Seizures Home Medications benztropine 2 mg tablet 2 mg PO DAILY 08/15/20 [History Last Taken Unknown] divalproex 500 mg tablet,delayed release (Depakote) 500 mg PO BID 08/15/20 [History Last Taken Unknown] doxepin 75 mg capsule 75 mg PO QHS 08/15/20 [History Last Taken Unknown] hydrocortisone 2.5 % topical ointment 1 applic topical BID PRN rash #454 grams 08/15/20 [Rx Last Taken Unknown] sertraline 100 mg tablet (Zoloft) 100 mg PO DAILY 08/15/20 [History Last Taken Unknown] folic acid 1 mg tablet 1 mg PO DAILY #90 tabs 09/04/20 [Rx Last Taken Unknown] albuterol sulfate 90 mcg/actuation aerosol inhaler (Ventolin HFA) 2 puff inhalation Q4H PRN PRN Wheezing #1 inh 02/03/21 [Rx Last Taken Unknown] levocetirizine 5 mg tablet (Xyzal) 5 mg PO QPM #90 tabs 06/12/21 [Rx Last Taken Unknown] ergocalciferol (vitamin D2) 1,250 mcg (50,000 unit) capsule 1,250 mcg PO Q2W 12/09/21 [History Last Taken Unknown] ketoconazole 2 % topical cream 1 applic topical BID #60 grams 12/09/21 [Rx Last Taken Unknown] paliperidone 3 mg tablet,extended release 24 hr 3 mg PO QAM 12/09/21 [History Last Taken Unknown] paliperidone 9 mg tablet,extended release 24 hr (Invega) 9 mg PO DAILY 12/09/21 [History Last Taken Unknown] levothyroxine 75 mcg tablet 75 mcg PO DAILY #60 tabs 12/10/21 [Rx Last Taken Unknown] metformin 500 mg tablet 500 mg PO BID #180 tabs 03/02/22 [Rx Last Taken Unknown] Allergy/AdvReac Type Severity Reaction Status Date / Time lactose AdvReac Unknown unknown Verified 04/25/22 13:17 almonds Allergy Unknown unknown Uncoded 04/25/22 13:17 Family History Mother Diabetes Other Hypertension Surgical History History of foot surgery Social History Smoking Status: Former smoker alcohol intake: never substance use type: does not use ROS ROS ED Constitutional Constitutional ED: Reports chills and sweats; Denies fever(s) ENT ENT ED: Reports sore throat Cardiovascular Cardiovascular: Denies chest pain or palpitations Respiratory/Chest Respiratory/Chest: Denies cough or dyspnea Gastrointestinal Gastrointestinal: Reports abdominal pain, diarrhea and vomiting Genitourinary Genitourinary ED: Denies dysuria or hematuria Musculoskeletal Musculoskeletal: Reports myalgias Integumentary Denies abscess or Abrasions Neurologic Neurologic: Denies headache(s) Psychiatric Psychiatric: Reports anxiety; Denies depression EXAM Physical Exam Const Vital Signs: 04/25/22 13:18 Temperature 96.3 F L Temperature Source Temporal Pulse Rate 86 Respiratory Rate 16 Blood Pressure 133/90 H Blood Pressure Mean 104 Pulse Ox 97 Oxygen Delivery Method Room Air Positive well nourished General Appearance ED: NAD; Negative for pallor HEENT Reports TM's clear and moist mucous membranes normocephalic and atraumatic Tympanic Membrane ED: Yes TM's clear Eyes PERRL and EOMs intact bilaterally General Eye ED: Negative for pale conjunctiva or scleral icterus Resp normal respiratory effort and clear to auscultation bilaterally Effort and Inspection: respiratory distress Auscultation: Negative for rales, rhonchi or wheezes Cardio regular rate and regular rhythm GI GI Narrative: Abdomen soft. No rebound or guarding. Mild diffuse generalized pain. Back/Spine no CVA tenderness Neuro CN's II-XII intact bilaterally and moves all extremities Sensorium / Orientation: alert Psych mental status grossly normal and thought process normal Mood & Affect: anxious Skin no wounds General Skin Exam: Negative for jaundice or pallor MDM MDM MDM Narrative Medical decision making narrative: Patient treated with Zofran for nausea. His abdominal exam is benign. I did obtain instigating labs and his CBC is normal. No leukocytosis or left shift. Hemoglobin hematocrit are stable. Renal function electrolytes are normal with exception of a potassium of 3.3. AST is slightly elevated at 72 and ALT slightly elevated 109. Lipase and other LFTs are normal. I do not believe the patient needs a CAT scan or other lab work. I will discharge her home with Zofran for home. I suspect a viral source as the etiology of his symptoms. Impression: 1. Nausea/vomiting 2. Diarrhea 3. Abdominal pain Lab Data Attestation: I reviewed the patient's lab results. Labs: Laboratory Results - last 24 hr 04/25/22 04/25/22 13:35 13:35 WBC 8.3 RBC 5.88 Hgb 15.2 Hct 46.1 MCV 78.4 L MCH 25.9 L MCHC 33.0 RDW Std Deviation 39.1 RDW Coeff of [place] 13.8 Plt Count 290 MPV 10.9 Immature Gran % (Auto) 0.200 Neut % (Auto) 53.2 Lymph % (Auto) 38.2 [place] % (Auto) 7.1 Eos % (Auto) 0.8 Baso % (Auto) 0.5 Absolute Neuts (auto) 4.4 Absolute Lymphs (auto) 3.18 Nucleated RBC % 0 Sodium 138 Potassium 3.3 L Chloride 104 Carbon Dioxide 26.0 Anion Gap 8 BUN 1 L Creatinine 0.69 L Estim Creat Clear Calc 167.93 Est GFR (MDRD) Af Amer 183 Est GFR (MDRD) Non-Af 151 BUN/Creatinine Ratio 1.4 L Glucose 120 H Calcium 9.6 Total Bilirubin 0.60 AST 72 H ALT 109 H Alkaline Phosphatase 114 Total Protein 7.8 Albumin 3.7 Globulin 4.1 Albumin/Globulin Ratio 0.9 Lipase 76 Discharge Plan Triage Chief Complaint: Abd Pain ED Provider: Ravi Martinez Dx/Rx/DC Orders Prescriptions: No Action benztropine 2 mg tablet 2 mg PO DAILY divalproex [Depakote] 500 mg tablet,delayed release (DR/EC) 500 mg PO BID Label Comments: Dr Bae Rx Instructions: 1 a in the AM 1 in the pm - take with 250 mg tab doxepin 75 mg capsule 75 mg PO QHS Label Comments: Dr Bae sertraline [Zoloft] 100 mg tablet 100 mg PO DAILY Label Comments: Dr Bae hydrocortisone 2.5 % ointment 1 applic TOPICAL BID PRN (Reason: rash) Qty: 454 3RF paliperidone [Invega] 9 mg tablet extended release 24hr 9 mg PO DAILY Label Comments: Dr Bae ergocalciferol (vitamin D2) 1,250 mcg (50,000 unit) capsule 1,250 mcg PO Q2W paliperidone 3 mg tablet extended release 24hr 3 mg PO QAM ketoconazole 2 % cream 1 applic topical BID Qty: 60 2RF albuterol sulfate [Ventolin HFA] 90 mcg/actuation HFA aerosol inhaler 2 puff inhalation Q4H PRN PRN (Reason: Wheezing) Qty: 1 0RF folic acid 1 mg tablet 1 mg PO DAILY Qty: 90 0RF levocetirizine [Xyzal] 5 mg tablet 5 mg PO QPM Qty: 90 3RF levothyroxine 75 mcg tablet 75 mcg PO DAILY Qty: 60 1RF metformin 500 mg tablet 500 mg PO BID Qty: 180 0RF Primary Care Provider: Baylee Goddard Referrals: Baylee Goddard MD [Primary Care Provider] -
[2022-04-25 14:07] LABS: Absolute Lymphocyte Count 3.18 X10^3/uL (0.83-4.51); Absolute Neutrophil Count 4.4 X10^3/uL (2.0-7.7); Basophil# 0.04 X10^3/uL; Basophil% 0.5 % (0-1); Eosinophil# 0.07 X10^3/uL; Eosinophils% 0.8 % (0-5); Hematocrit 46.1 % (40-54); Hemoglobin 15.2 g/dL (13.0-16.5); Lymphocyte # 3.18 X10^3/ul (0.83-4.51); Lymphocyte % 38.2 % (19-41); Mean Corpuscular Hgb 25.9 pg (27.0-32.0); Mean Corpuscular Volume 78.4 fL (80-94); Mean Platelet Vol. 10.9 fl (6.2-12.0); Monocyte# 0.59 X10^3/uL; Monocyte% 7.1 % (0-10); NRBC Flagged by Analyzer 0 % (0-5); Neutrophil # 4.43 X10^3/uL (2.7-7.7); Neutrophil % 53.2 % (47-70); Platelet Count 290 K/mm3 (150-450); RBC Distribution Width CV 13.8 % (11.6-14.6); RBC Distribution Width SD 39.1 fl (35.1-43.9); Red Blood Count 5.88 M/mm3 (4.6-6.2); White Blood Count 8.3 K/mm3 (4.4-11.0)
[2022-04-25] MEDS: Ondansetron 4 MG/2 ML Vial IV (14:22)
[2022-04-25 14:33] LABS: ALB/GLOB Ratio 0.9 RATIO (0.9-2.4); AST(SGOT) 72 U/L (15-37); Alanine Aminotransfer ALT/SGPT 109 U/L (16-61); Albumin, Serum 3.7 g/dL (3.2-5.0); Alkaline Phosphatase 114 U/L (45-117); Anion Gap 8 (5-15); BUN 1 mg/dL (7-18); BUN/Creat Ratio 1.4 RATIO (10-20); Calcium,Total 9.6 mg/dL (8.5-10.1); Chloride 104 mmol/L (98-107); Creatinine, Serum 0.69 mg/dL (0.70-1.30); EST Glomerular Filtration Rate 151 mL/min (>60); Est Glom Filt Rate - Afr Amer 183 mL/min (>60); Estimated Creatinine Clearance 167.93 ml/min; Globulin 4.1 g/dL (2.2-4.2); Glucose 120 mg/dL (74-106); Lipase 76 U/L (73-393); Potassium 3.3 mmol/L (3.5-5.1); Protein, Total 7.8 g/dL (6.4-8.2); Sodium Level 138 mmol/L (136-145)
== END 2022-04-25 15:34 | disposition home or self-care (01) ==
PROVIDERS: Emergency Provider Student in an Organized Health Care Education/Training Program; PCP Internal Medicine; Visit Provider Student in an Organized Health Care Education/Training Program
DX: R11.2 Nausea with vomiting, unspecified (principal); J02.9 Acute pharyngitis, unspecified; R10.9 Unspecified abdominal pain; R19.7 Diarrhea, unspecified; Z87.891 Personal history of nicotine dependence
CPT/HCPCS: 80053; 83690; 85025; 96374; 99283; A4216; J2405

== ENCOUNTER → 2022-06-25 | Outpatient (CLI) | payer MEDICARE, SELFPAY ==
[2022-06-25 18:34] LABS: Thyroid Stim Hormone (TSH) 3.94 uIU/mL (0.358-3.74)
== END | disposition home or self-care (01) ==
LOC: BIMLAB 16:31
PROVIDERS: PCP Internal Medicine; Referring Provider Internal Medicine; Visit Provider Internal Medicine
DX: E03.9 Hypothyroidism, unspecified (principal)
CPT/HCPCS: 36415; 84443

== ENCOUNTER → 2022-12-23 | Outpatient (CLI) | payer MEDICARE, SELFPAY ==
[2022-12-23 15:19] LABS: Absolute Lymphocyte Count 2.45 X10^3/uL (0.83-4.51); Basophil# 0.03 X10^3/uL; Basophil% 0.4 % (0-1); Eosinophil# 0.08 X10^3/uL; Eosinophils% 1.1 % (0-5); Hemoglobin 16.8 g/dL (13.0-16.5); Lymphocyte # 2.45 X10^3/ul (0.83-4.51); Lymphocyte % 35.1 % (19-41); Mean Corp Hgb Conc 32.3 g/dL (32-36); Mean Corpuscular Hgb 25.5 pg (27.0-32.0); Mean Corpuscular Volume 78.8 fL (80-94); Mean Platelet Vol. 10.8 fl (6.2-12.0); Monocyte# 0.38 X10^3/uL; Monocyte% 5.4 % (0-10); NRBC Flagged by Analyzer 0 % (0-5); Neutrophil # 4.03 X10^3/uL (2.7-7.7); Neutrophil % 57.9 % (47-70); Platelet Count 243 K/mm3 (150-450); RBC Distribution Width CV 16.1 % (11.6-14.6); RBC Distribution Width SD 42.1 fl (35.1-43.9)
[2022-12-23 15:53] LABS: ALB/GLOB Ratio 0.9 RATIO (0.9-2.4); AST(SGOT) 11 U/L (15-37); Alanine Aminotransfer ALT/SGPT 34 U/L (16-61); Albumin, Serum 3.8 g/dL (3.2-5.0); Alkaline Phosphatase 101 U/L (45-117); Anion Gap 5 (5-15); BUN 5 mg/dL (7-18); BUN/Creat Ratio 6.6 RATIO (10-20); Calcium,Total 9.6 mg/dL (8.5-10.1); Chloride 103 mmol/L (98-107); Cholesterol 114 mg/dL (200); Creatinine, Serum 0.76 mg/dL (0.70-1.30); EST Glomerular Filtration Rate 135 mL/min (>60); Est Glom Filt Rate - Afr Amer 163 mL/min (>60); Globulin 4.2 g/dL (2.2-4.2); Glucose 113 mg/dL (74-106); High Density Lipoprotein 37 mg/dL; Potassium 4.1 mmol/L (3.5-5.1); Sodium Level 137 mmol/L (136-145); Thyroid Stim Hormone (TSH) 6.75 uIU/mL (0.358-3.74); Triglycerides 94 mg/dL; Very Low Density Lipoprotein 19 mg/dL (5-40)
== END | disposition home or self-care (01) ==
LOC: BIMLAB 13:55
PROVIDERS: PCP Internal Medicine; Referring Provider Internal Medicine; Visit Provider Internal Medicine
DX: F25.9 Schizoaffective disorder, unspecified (principal); E03.9 Hypothyroidism, unspecified
CPT/HCPCS: 36415; 80053; 80061; 84443; 85025

== ENCOUNTER → 2023-06-21 | Outpatient (CLI) | payer MEDICARE, SELFPAY ==
[2023-06-21 15:18] LABS: Absolute Lymphocyte Count 2.33 X10^3/uL (0.83-4.51); Absolute Neutrophil Count 4.2 X10^3/uL (2.0-7.7); Basophil# 0.05 X10^3/uL; Basophil% 0.7 % (0-1); Eosinophils% 1.4 % (0-5); Hematocrit 53.5 % (40-54); Lymphocyte # 2.33 X10^3/ul (0.83-4.51); Lymphocyte % 33.1 % (19-41); Mean Corp Hgb Conc 31.8 g/dL (32-36); Mean Corpuscular Hgb 25.4 pg (27.0-32.0); Mean Corpuscular Volume 80.1 fL (80-94); Mean Platelet Vol. 10.1 fl (6.2-12.0); Monocyte# 0.38 X10^3/uL; Monocyte% 5.4 % (0-10); NRBC Flagged by Analyzer 0 % (0-5); Neutrophil # 4.15 X10^3/uL (2.7-7.7); Neutrophil % 59.1 % (47-70); Platelet Count 261 K/mm3 (150-450); RBC Distribution Width CV 14.4 % (11.6-14.6); RBC Distribution Width SD 40.2 fl (35.1-43.9); Red Blood Count 6.68 M/mm3 (4.6-6.2)
[2023-06-21 16:25] LABS: Hemoglobin A1c 5.4 % (3.8-5.6)
[2023-06-21 16:28] LABS: AST(SGOT) 14 U/L (15-37); Alanine Aminotransfer ALT/SGPT 29 U/L (16-61); Albumin, Serum 3.9 g/dL (3.2-5.0); Alkaline Phosphatase 109 U/L (45-117); Anion Gap 7 (5-15); BUN 10 mg/dL (7-18); BUN/Creat Ratio 12.3 RATIO (10-20); Calcium,Total 8.9 mg/dL (8.5-10.1); Chloride 105 mmol/L (98-107); Cholesterol 120 mg/dL (200); Creatinine, Serum 0.81 mg/dL (0.70-1.30); EST Glomerular Filtration Rate 125 mL/min (>60); Est Glom Filt Rate - Afr Amer 151 mL/min (>60); Glucose 105 mg/dL (74-106); High Density Lipoprotein 40 mg/dL; Potassium 4.1 mmol/L (3.5-5.1); Protein, Total 7.9 g/dL (6.4-8.2); Sodium Level 141 mmol/L (136-145); Thyroid Stim Hormone (TSH) 2.83 uIU/mL (0.358-3.74); Triglycerides 157 mg/dL; Very Low Density Lipoprotein 31 mg/dL (5-40)
== END | disposition home or self-care (01) ==
LOC: BIMLAB 13:53
PROVIDERS: PCP Internal Medicine; Referring Provider Internal Medicine; Visit Provider Internal Medicine
DX: E03.9 Hypothyroidism, unspecified (principal); F25.9 Schizoaffective disorder, unspecified; R73.03 Prediabetes
CPT/HCPCS: 36415; 80053; 80061; 83036; 84443; 85025

== ENCOUNTER 2023-06-29 15:51 | Emergency (ER) | payer MEDICARE, SELFPAY ==
[2023-06-29 16:21] VITALS: BP 127/88; PULSE 119; RESP 20; TEMP 36.9; O2SAT 96; BMI 30.7
--- NOTE | 2023-06-29 22:31 | EDS_ITS ---
HPI HPI - URI History of Present Illness Chief Complaint: Cold Sx Informant: patient Onset/Context/Timing Onset: Today and Yesterday Context: Gradual Onset Timing: Continuous Current Severity: Mild Maximum Severity: Mild Associated Symptoms Associated Symptoms: Positive for Nasal Congestion, Myalgias and Nonproductive cough; Negative for Vomiting, Diarrhea or Hemoptysis Narrative Narrative: 22-year-old male history of schizoaffective disorder. Mom recently diagnosed with COVID. He has had a cough today and subjective fever. No rash he took his temperature at home. Denies vomiting or diarrhea. No chest pain. No significant shortness of breath. Prior similar symptoms: Yes Recent Illness/Hospitalization: No ROS ROS ED ROS Narrative Cough. Subjective fever. Review of Systems ROS Unobtainable: Denies due to encephalopathy Constitutional Constitutional ED: Denies chills or fever(s) Eyes Eyes: Denies blurry vision ENT ENT ED: Denies ear pain Cardiovascular Cardiovascular: Denies chest pain or palpitations Respiratory/Chest Respiratory/Chest: Reports cough; Denies dyspnea or dyspnea on exertion Gastrointestinal Gastrointestinal: Denies abdominal pain, diarrhea, nausea or vomiting Genitourinary Genitourinary ED: Denies dysuria Musculoskeletal Musculoskeletal: Denies arthralgias Integumentary Denies abscess Neurologic Neurologic: Reports headache(s) Psychiatric Psychiatric: Denies anxiety or depression Endocrine Endocrinology: Denies cold intolerance Hematologic/Lymphatic Hematologic/Lymphatic: Denies easy bleeding Allergic/Immunologic Allergic/Immunologic ED: Denies mouth swelling, tongue swelling or urticaria PFSH PFS Medical History Anxiety Autism Borderline type 2 diabetes mellitus Depression Flu vaccine need GERD (gastroesophageal reflux disease) Hypersomnolence Hypothyroidism Schizoaffective disorder Seizures Home Medications benztropine 2 mg tablet 2 mg PO DAILY 08/15/20 [History Last Taken Unknown] divalproex 500 mg tablet,delayed release (Depakote) 500 mg PO BID 08/15/20 [History Last Taken Unknown] doxepin 75 mg capsule 75 mg PO QHS 08/15/20 [History Last Taken Unknown] hydrocortisone 2.5 % topical ointment 1 applic topical BID PRN rash #454 grams 08/15/20 [Rx Last Taken Unknown] folic acid 1 mg tablet 1 mg PO DAILY #90 tabs 09/04/20 [Rx Last Taken Unknown] albuterol sulfate 90 mcg/actuation aerosol inhaler (Ventolin HFA) 2 puff inhalation Q4H PRN PRN Wheezing #1 inh 02/03/21 [Rx Last Taken Unknown] levocetirizine 5 mg tablet (Xyzal) 5 mg PO QPM #90 tabs 06/12/21 [Rx Last Taken Unknown] ergocalciferol (vitamin D2) 1,250 mcg (50,000 unit) capsule 1,250 mcg PO Q2W 12/09/21 [History Last Taken Unknown] ketoconazole 2 % topical cream 1 applic topical BID #60 grams 12/09/21 [Rx Last Taken Unknown] ondansetron 4 mg disintegrating tablet 4 mg PO Q8H PRN nausea and vomiting #10 tabs 04/25/22 [Rx Last Taken Unknown] sertraline 100 mg tablet (Zoloft) 150 mg PO DAILY 06/25/22 [History Last Taken Unknown] levothyroxine 75 mcg tablet 75 mcg PO DAILY #90 tabs 12/24/22 [Rx Last Taken Unknown] metformin 500 mg tablet See Rx Instructions .Route .COMPLEX #180 tabs 02/09/23 [Rx Last Taken Unknown] Allergy/AdvReac Type Severity Reaction Status Date / Time almond Allergy NEEDS Verified 06/29/23 16:21 FOLLOW-UP lactose AdvReac Unknown unknown Verified 06/29/23 16:21 Family History Mother Diabetes Other Hypertension Surgical History History of foot surgery Social History Smoking Status: Former smoker alcohol intake: never substance use type: does not use EXAM Physical Exam Narrative Exam Narrative: Well-appearing 22-year-old male. Vital signs stable afebrile. Pulse ox 96% on room air no signs hypoxia. No distress. H EENT exam unremarkable. Posterior pharynx normal. Moist weeks membranes. TMs normal bilaterally. Extraocular motions are intact. Neck nontender no lymphadenopathy. Lungs clear to auscultation bilaterally. No rales, rhonchi or wheezing. Equal and symmetrical. Heart tachycardic rate about 110 no murmur. Abdomen soft nontender. Moving all 4 extremities. Calves are nontender without edema or cords. Neurologically is awake and alert with no focal motor deficits. Benign exam. Const Vital Signs: 06/29/23 16:21 Temperature 98.5 F Temperature Source Temporal Pulse Rate 119 H Respiratory Rate 20 H Blood Pressure 127/88 H Blood Pressure Mean 101 Pulse Ox 96 Oxygen Delivery Method Room Air Positive well nourished and well developed; Negative for cachectic or contractures General Appearance ED: well developed and NAD; Negative for cachectic, contractures, cyanotic, diaphoretic or pallor Nutritional Appearance: Negative for cachectic HEENT Reports moist mucous membranes; Denies dry mucous membranes normocephalic and atraumatic Face and Sinus: Negative for sinus tenderness, maxillary instability or facial t enderness Mouth ED: No dry mucous membranes Mouth: No dry mucous membranes Throat: posterior oropharynx normal; Negative for tonsils abnormal or posterior oropharynx abnormal Eyes PERRL and EOMs intact bilaterally General Eye ED: Negative for pale conjunctiva or scleral icterus Neck no lymphadenopathy, supple, no meningeal signs and no JVD General: Negative for anterior neck swelling or lymphadenopathy Resp normal respiratory effort and clear to auscultation bilaterally Effort and Inspection: Negative for retractions Auscultation: Negative for rales, rhonchi, wheezes or diminished lung sounds Cardio S1 normal heart sound, S2 normal heart sound and no murmurs Rate: tachycardic Rhythm: regular rhythm GI non-tender, non-distended and no masses Inspection: Negative for abdominal distention Auscultation: normoactive bowel sounds Palpation: soft; Negative for tender, guarding or mass Back/Spine no CVA tenderness and normal ROM General Back: Negative for CVA tenderness Cervical Spine: Negative for cervical spine tenderness Thoracic Spine / Upper Back: Negative for thoracic spinal tenderness Lumbar Spine / Lower Back: Negative for lumbar spinal tenderness Sacrum: Negative for tenderness Extremity normal to inspection and full ROM General Extremety ED: Negative for cyanosis, tenderness or other findings General Extremity: Negative for cyanosis or other findings Neuro oriented x3 and CN's II-XII intact bilaterally Sensorium / Orientation: alert, oriented to person, oriented to place and oriented to time; Negative for orientation impaired or lethargic Motor Exam: strength 5/5 throughout Psych mental status grossly normal Appearance: Negative for other Attitude: No agitated Mood & Affect: Negative for depressed, anxious or tearful Skin General Skin Exam: Negative for jaundice or pallor Lesions: no lesions Rashes: no rashes Trauma: Negative for abrasion or laceration MDM MDM MDM Narrative Medical decision making narrative: 22-year-old appears ill with viral URI. Lungs are clear. I do not think he needs a chest x-ray at this time. COVID test negative. He still may have COVID or another virus his mom just tested positive today. She has had recent URI symptoms. He is in no distress. He is not wheezing. He has had stable vital signs. He will be discharged home. Treated symptomatically. History & Record Review Additional record(s) reviewed:: Prior inpatient record, Prior outpatient record, Prior ED visit and Prior labs Lab Data Attestation: I reviewed the patient's lab results. Lab results narrative: Rapid COVID test negative. Discharge Plan Triage Chief Complaint: Cold Sx ED Provider: Yuri Jones Dx/Rx/DC Orders Clinical Impression: Viral syndrome Instructions: ED URI, Viral, No Abx (Adult) Prescriptions: No Action benztropine 2 mg tablet 2 mg PO DAILY divalproex [Depakote] 500 mg tablet,delayed release (DR/EC) 500 mg PO BID Patient Comments: Dr Bae Rx Instructions: 1 a in the AM 1 in the pm - take with 250 mg tab doxepin 75 mg capsule 75 mg PO QHS Patient Comments: Dr Bae hydrocortisone 2.5 % ointment 1 applic TOPICAL BID PRN (Reason: rash) Qty: 454 3RF sertraline [Zoloft] 100 mg tablet 150 mg PO DAILY Patient Comments: Dr Bae ergocalciferol (vitamin D2) 1,250 mcg (50,000 unit) capsule 1,250 mcg PO Q2W ketoconazole 2 % cream 1 applic topical BID Qty: 60 2RF albuterol sulfate [Ventolin HFA] 90 mcg/actuation HFA aerosol inhaler 2 puff inhalation Q4H PRN PRN (Reason: Wheezing) Qty: 1 0RF ondansetron 4 mg tablet,disintegrating 4 mg PO Q8H PRN (Reason: nausea and vomiting) Qty: 10 0RF folic acid 1 mg tablet 1 mg PO DAILY Qty: 90 0RF levocetirizine [Xyzal] 5 mg tablet 5 mg PO QPM Qty: 90 3RF levothyroxine 75 mcg tablet 75 mcg PO DAILY Qty: 90 1RF metformin 500 mg tablet See Rx Instructions .ROUTE .COMPLEX Qty: 180 3RF Dose Instruction: TAKE 1 TABLET BY MOUTH TWICE DAILY Rx Instructions: TAKE 1 TABLET BY MOUTH TWICE DAILY Primary Care Provider: Baylee Goddard Referrals: Baylee Goddard MD [Primary Care Provider] - As Needed Activity Restrictions/Additional Instructions: Plenty of fluids and rest. Alternate Tylenol and Motrin for any fevers and body aches. Follow-up with your doctor if not improving. Disposition Disposition: Home, Self Care
[2023-06-29 22:37] VITALS: BP 131/62; PULSE 81; RESP 17; O2SAT 97
== END 2023-06-29 22:39 | disposition home or self-care (01) ==
PROVIDERS: Emergency Provider Emergency Medicine; PCP Internal Medicine; Visit Provider Emergency Medicine
DX: B34.9 Viral infection, unspecified (principal); R51.9 Headache, unspecified; Z87.891 Personal history of nicotine dependence
CPT/HCPCS: 87426; 94760; 99282

== ENCOUNTER → 2024-01-05 | Outpatient (CLI) | payer MEDICARE, SELFPAY ==
[2024-01-05 16:50] LABS: Absolute Lymphocyte Count 2.07 X10^3/uL (0.83-4.51); Basophil# 0.03 X10^3/uL; Basophil% 0.4 % (0-1); Eosinophil# 0.16 X10^3/uL; Eosinophils% 2.4 % (0-5); Hematocrit 46.6 % (40-54); Hemoglobin 14.9 g/dL (13.0-16.5); Lymphocyte # 2.07 X10^3/ul (0.83-4.51); Lymphocyte % 30.4 % (19-41); Mean Corpuscular Hgb 25.4 pg (27.0-32.0); Mean Corpuscular Volume 79.5 fL (80-94); Mean Platelet Vol. 10.5 fl (6.2-12.0); Monocyte% 7.4 % (0-10); NRBC Flagged by Analyzer 0 % (0-5); Neutrophil # 4.02 X10^3/uL (2.7-7.7); Neutrophil % 59.1 % (47-70); Platelet Count 210 K/mm3 (150-450); RBC Distribution Width CV 14.5 % (11.6-14.6); RBC Distribution Width SD 41.4 fl (35.1-43.9); Red Blood Count 5.86 M/mm3 (4.6-6.2); White Blood Count 6.8 K/mm3 (4.4-11.0)
[2024-01-05 17:29] LABS: ALB/GLOB Ratio 0.9 RATIO (0.9-2.4); AST(SGOT) 26 U/L (15-37); Alanine Aminotransfer ALT/SGPT 56 U/L (16-61); Albumin, Serum 3.4 g/dL (3.2-5.0); Alkaline Phosphatase 102 U/L (45-117); Anion Gap 10 (5-15); BUN 7 mg/dL (7-18); BUN/Creat Ratio 9.7 RATIO (10-20); Calcium,Total 8.9 mg/dL (8.5-10.1); Chloride 102 mmol/L (98-107); Creatinine, Serum 0.72 mg/dL (0.70-1.30); EST Glomerular Filtration Rate 142 mL/min (>60); Est Glom Filt Rate - Afr Amer 171 mL/min (>60); Globulin 3.9 g/dL (2.2-4.2); Glucose 124 mg/dL (74-106); Potassium 3.7 mmol/L (3.5-5.1); Protein, Total 7.3 g/dL (6.4-8.2); Sodium Level 137 mmol/L (136-145); Thyroid Stim Hormone (TSH) 2.35 uIU/mL (0.358-3.74)
== END | disposition home or self-care (01) ==
LOC: BIMLAB 15:19
PROVIDERS: PCP Internal Medicine; Referring Provider Internal Medicine; Visit Provider Internal Medicine
DX: F25.9 Schizoaffective disorder, unspecified (principal); E03.9 Hypothyroidism, unspecified
CPT/HCPCS: 36415; 80053; 84443; 85025

== ENCOUNTER → 2024-02-10 | Outpatient (CLI) | payer MEDICARE, SELFPAY ==
[2024-02-10 16:35] LABS: Hematocrit 46.8 % (40-54); Hemoglobin 15.5 g/dL (13.0-16.5); Mean Corp Hgb Conc 33.1 g/dL (32-36); Mean Corpuscular Hgb 26.3 pg (27.0-32.0); Mean Corpuscular Volume 79.3 fL (80-94); Mean Platelet Vol. 10.5 fl (6.2-12.0); Platelet Count 183 K/mm3 (150-450); RBC Distribution Width CV 13.9 % (11.6-14.6); RBC Distribution Width SD 39.7 fl (35.1-43.9); White Blood Count 5.3 K/mm3 (4.4-11.0)
[2024-02-10 17:04] LABS: ALB/GLOB Ratio 0.9 RATIO (0.9-2.4); AST(SGOT) 31 U/L (15-37); Alanine Aminotransfer ALT/SGPT 55 U/L (16-61); Albumin, Serum 3.4 g/dL (3.2-5.0); Alkaline Phosphatase 95 U/L (45-117); Anion Gap 6 (5-15); BUN 6 mg/dL (7-18); BUN/Creat Ratio 7.9 RATIO (10-20); Chloride 103 mmol/L (98-107); Creatinine, Serum 0.76 mg/dL (0.70-1.30); EST Glomerular Filtration Rate 134 mL/min (>60); Est Glom Filt Rate - Afr Amer 162 mL/min (>60); Globulin 3.9 g/dL (2.2-4.2); Glucose 144 mg/dL (74-106); Potassium 3.7 mmol/L (3.5-5.1); Protein, Total 7.3 g/dL (6.4-8.2); Sodium Level 135 mmol/L (136-145)
[2024-02-10 17:06] LABS: Valproic Acid (Depakene) Level 79 ug/mL (50-100)
[2024-02-10 17:07] LABS: Hemoglobin A1c 5.4 % (3.8-5.6)
== END | disposition home or self-care (01) ==
LOC: BIMLAB 15:32
PROVIDERS: PCP Internal Medicine; Referring Provider Psychiatry & Neurology Psychiatry; Visit Provider Psychiatry & Neurology Psychiatry
DX: R53.83 Other fatigue (principal); Z79.899 Other long term (current) drug therapy
CPT/HCPCS: 36415; 80053; 80164; 82140; 83036; 85027

== ENCOUNTER → 2024-03-23 | Outpatient (CLI) | payer MEDICARE, SELFPAY | END | disposition home or self-care (01) | LOC: SL 11:41 | PROVIDERS: PCP Internal Medicine; Referring Provider Internal Medicine; Visit Provider Internal Medicine | DX: G47.10 Hypersomnia, unspecified (principal) | CPT/HCPCS: 95806 ==

== ENCOUNTER → 2024-05-05 | Outpatient (CLI) | payer MEDICARE, SELFPAY | END | disposition home or self-care (01) | LOC: SL 19:48 | PROVIDERS: PCP Internal Medicine; Referring Provider Internal Medicine; Visit Provider Internal Medicine | DX: G47.10 Hypersomnia, unspecified (principal) | CPT/HCPCS: 95810 ==

== ENCOUNTER → 2024-05-22 | Outpatient (CLI) | payer MEDICARE, SELFPAY | END | disposition home or self-care (01) | LOC: SL 12:54 | PROVIDERS: PCP Internal Medicine; Visit Provider Internal Medicine | DX: Z00.00 Encounter for general adult medical examination without abnormal findings (principal) ==